=== PATIENT | male | born 1975 | race Caucasian/White ===

== ENCOUNTER 2024-08-04 20:17 | Emergency (ER) | payer OTHER ==
[~2024-08-04] VITALS: Ht 190.5 cm; Wt 114.0 kg
[2024-08-04 20:20] VITALS: TEMP 98.6; O2SAT 96; O2SAT 97
[2024-08-04 20:57] LABS: BASOPHILS % 0.5 % (0.0-2.0); EOSINOPHILS % 0.6 % (0.0-5.0); HEMATOCRIT. 44.6 % (42.0-52.0); HEMOGLOBIN. 15.2 g/dL (14.0-18.0); LYMPHOCYTES % 29.3 % (20.0-50.0); MEAN CORPUSCULAR HEMOGLOBIN 32.8 pg (28.0-32.0); MEAN CORPUSCULAR HGB CONC 34.2 g/dL (31.0-37.0); MEAN CORPUSCULAR VOLUME 96.1 fL (80.0-94.0); MONOCYTES % 7.7 % (2.0-8.0); NEUTROPHILS % 61.9 % (40.0-76.0); PLATELET 263 x1000/uL (130-400); RED BLOOD CELL COUNT 4.64 mill/uL (4.7-6.1); RED CELL DISTRIBUTION WIDTH 13.1 % (11.6-14.6)
[2024-08-04 21:03] LABS: POTASSIUM 4.1 mEq/L (3.5-5.1)
[2024-08-04] MEDS ORDERED: ACET-2708 MT (21:03)
[2024-08-04 21:04] LABS: CALCIUM 9.7 mg/dL (8.7-10.4)
[2024-08-04 21:09] LABS: CREATININE 1.3 mg/dL (0.6-1.3)
[2024-08-04 21:31] VITALS: BP 138/87; PULSE 75; RESP 18
[2024-08-04] MEDS: IBUPROFEN 600MG TABLET PO STA (21:31)
[2024-08-04] MEDS: BACITRACIN ZINC OINT UDPKT TOP ONE (21:31)
[2024-08-04] MEDS: LIDOCAINE HCL 1% 20ML VIAL INFIL ONE (21:31)
== END 2024-08-04 22:37 | disposition home or self-care (01) ==
LOC: ER 20:17
DX: S05.42XA Penetrating wound of orbit with or without foreign body, left eye, initial encounter (principal); I10 Essential (primary) hypertension; W01.0XXA Fall on same level from slipping, tripping and stumbling without subsequent striking against object, initial encounter; Y93.89 Activity, other specified; Y92.89 Other specified places as the place of occurrence of the external cause; Y99.8 Other external cause status
CPT/HCPCS: 80048; 85025; 36415; 70450; 70486; 99284; J3490; Z7610 ×3